=== PATIENT | male | born 1960 | race Caucasian/White ===

== ENCOUNTER → 2017-04-12 | Outpatient (CLI) | payer BC ==
--- NOTE | 2017-04-12 09:49 | RADIOLOGY REPORT (SQ) ---
EXAM DESCRIPTION: CAROTID DOPPLER COMPLETED DATE/TIME: 04/12/2017 9:42 am REASON FOR STUDY: DIZZINESS AND GIDDINESS R42 DIZZINESS AND GIDDINESS COMPARISON: None. TECHNIQUE: Grayscale ultrasound, Doppler velocity and spectra, and color Doppler images acquired of the extra-cranial carotid and vertebral arteries. Images stored on PACS. LIMITATIONS: None. FINDINGS: RIGHT CAROTID CCA Velocities: Within normal limits. ICA Velocities Peak systolic 0.8 m/s. End diastolic 0.29 m/s. Proximal ICA/CCA peak systolic ratio 0.8. Mild heterogenous plaque. LEFT CAROTID CCA Velocities: Within normal limits. ICA Velocities Peak systolic 0.82 m/s. End diastolic 0.35 m/s. Proximal ICA/CCA peak systolic ratio 0.9. Mild heterogenous plaque. VERTEBRAL ARTERIES: Antegrade flow. Normal waveforms. SUBCLAVIAN ARTERIES: No finding. OTHER: No other significant finding. IMPRESSION: NO HEMODYNAMICALLY SIGNIFICANT STENOSIS. COMMENT: Quality ID #[id number]: Velocity criteria are extrapolated from the diameter data as defined by t he Society of Radiologists in Ultrasound Consensus Conference. Radiology 2003: 229; 340-346. TECHNICAL DOCUMENTATION: JOB ID: [id number] [employer]- All Rights Reserved
== END ==
LOC: SP 08:47
PROVIDERS: ATTEND Internal Medicine Geriatric Medicine
DX: R42 Dizziness and giddiness (principal)
CPT/HCPCS: 93880

== ENCOUNTER 2017-09-07 16:22 | Emergency (ER) | payer BC ==
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
[2017-09-07 18:55] LABS: ABSOLUTE BASOPHILS # (AUTO) 0.1 10^3/uL (0.0-0.2); ABSOLUTE EOSINOPHILS # (AUTO) 1.4 10^3/uL (0.0-0.6); ABSOLUTE LYMPHOCYTES (AUTO) 2.4 10^3/uL (0.5-4.7); ABSOLUTE MONOCYTES (AUTO) 0.8 10^3/uL (0.1-1.4); ABSOLUTE NEUT (AUTO) 7.1 10^3/uL (1.7-8.2); BASOPHILS % (AUTO) 1.1 % (0-2); EOSINOPHILS % (AUTO) 11.7 % (0-6); HEMATOCRIT 47.3 % (37.9-51.0); HEMOGLOBIN 16.1 g/dL (13.5-17.0); LYMPHOCYTES % (AUTO) 20.3 % (13-45); MEAN CORPUSCULAR HEMOGLOBIN 30.4 pg (27.0-33.4); MEAN CORPUSCULAR VOLUME 89 fl (80-97); MONOCYTES % (AUTO) 6.7 % (3-13); PLATELET COUNT 272 10^3/uL (150-450); RED CELL DISTRIBUTION WIDTH 14.1 % (11.5-14.0); SEGMENTED NEUTROPHILS % (AUTO) 60.2 % (42-78); TOTAL CELLS COUNTED % (AUTO) 100 %; WHITE BLOOD COUNT 11.8 10^3/uL (4.0-10.5)
--- NOTE | 2017-09-07 19:10 | RADIOLOGY REPORT (SQ) ---
EXAM DESCRIPTION: CT HEAD WITHOUT COMPLETED DATE/TIME: 09/07/2017 6:50 pm REASON FOR STUDY: dizzy COMPARISON: None. TECHNIQUE: Axial images acquired through the brain without intravenous contrast. Images reviewed wi th bone, brain and subdural windows. Images stored on PACS. All CT scanners at this facility use dose modulation, iterative reconstruction, and/or weight based d osing when appropriate to reduce radiation dose to as low as reasonably achievable (ALARA). [facility]: Dose Right [facility]: CareDose [facility]: Dose Right [facility]: Teradose 4D [facility]: [employer] RADIATION DOSE: CT Rad equipment meets quality standard of care and radiation dose reduction techniq ues were employed. CTDIvol: 64.6 mGy. DLP: 1163 mGy-cm. mGy. LIMITATIONS: None. FINDINGS: VENTRICLES: Normal size and contour. CEREBRUM: No masses. No hemorrhage. No midline shift. No evidence for acute infarction. Normal gra y/white matter differentiation. No areas of low density in the white matter. CEREBELLUM: No masses. No hemorrhage. No alteration of density. No evidence for acute infarction. EXTRAAXIAL SPACES: No fluid collections. No masses. ORBITS AND GLOBE: No intra- or extraconal masses. Normal contour of globe without masses. CALVARIUM: No fracture. PARANASAL SINUSES: Moderate sphenoid sinus mucosal thickening. SOFT TISSUES: No mass or hematoma. OTHER: No other significant finding. IMPRESSION: No acute intracranial findings.Moderate sphenoid sinus mucosal thickening. EVIDENCE OF ACUTE STROKE: NO. COMMENT: Quality ID # [id number]: Final reports with documentation of one or more dose reduction techniques (e.g., Automated exposure control, adjustment of the mA and/or kV according to patient size, use of iterative reconstruction technique) TECHNICAL DOCUMENTATION: JOB ID: [id number] [place]-72 2010 [employer]- All Rights Reserved
[2017-09-07 19:13] LABS: ALANINE AMINOTRANSFERASE 25 U/L (21-72); ALBUMIN 4.5 g/dL (3.5-5.0); ALKALINE PHOSPHATASE 51 U/L (38-126); ANION GAP 10 (5-19); ASPARTATE AMINO TRANSFERASE 15 U/L (17-59); BILIRUBIN,DIRECT 0.4 mg/dL (0.0-0.4); BILIRUBIN,TOTAL 0.6 mg/dL (0.2-1.3); BLOOD UREA NITROGEN 9 mg/dL (7-20); CALCIUM 9.9 mg/dL (8.4-10.2); CARBON DIOXIDE 27 mmol/L (22-30); CHLORIDE 103 mmol/L (98-107); GLUCOSE 101 mg/dL (75-110); POTASSIUM 4.6 mmol/L (3.6-5.0); SODIUM 139.9 mmol/L (137-145); TOTAL PROTEIN 7.4 g/dL (6.3-8.2)
--- NOTE | 2017-09-07 19:51 | ER Document Report ---
ED General - General Mode of Arrival: Ambulatory Information source: Patient TRAVEL OUTSIDE OF THE [place] IN LAST 30 DAYS: No <ZULEYKA MAZA - Last Filed: 09/07/17 22:35> <MALDONADO YUAN - Last Filed: 09/30/17 17:06> - General Chief Complaint: Dizziness Stated Complaint: DIZZINESS Time Seen by Provider: 09/07/17 18:10 Notes: Patient is a 57 year old male with a history of HTN and hypercholesterolemia presents to the emergency department complaining of dizziness onset yesterday. Patient states he was at work when he noticed he began to get dizzy. Patient states that the dizziness is exacerbated with movement but resolves when he is supine or standing still. Patient also complains of some nausea. Patient denies vomiting, diarrhea, fevers, recent illness, chest pain, shortness of breath, or blurry vision. Patient mentions that he fell and hit his head in June of 2017. (ZULEYKA MAZA) - Related Data Allergies/Adverse Reactions: No Known Allergies Allergy (Unverified 09/07/17 16:24) Past Medical History - General Information source: Patient - Social History Smoking Status: Current Every Day Smoker Cigarette use (# per day): Yes Smoking Education Provided: No Family History: Reviewed & Not Pertinent Patient has suicidal ideation: No Patient has homicidal ideation: No - Past Medical History Cardiac Medical History: Reports: Hx Hypercholesterolemia, Hx Hypertension <ZULEYKA MAZA - Last Filed: 09/07/17 22:35> Review of Systems - Review of Systems Constitutional: No symptoms reported EENT: No symptoms reported Cardiovascular: See HPI, Dizziness Respiratory: No symptoms reported Gastrointestinal: See HPI, Nausea Genitourinary: No symptoms reported Male Genitourinary: No symptoms reported Musculoskeletal: No symptoms reported Skin: No symptoms reported Hematologic/Lymphatic: No symptoms reported Neurological/Psychological: No symptoms reported -: Yes All other systems reviewed and negative <ZULEYKA MAZA - Last Filed: 09/07/17 22:35> Physical Exam <ZULEYKA MAZA - Last Filed: 09/07/17 22:35> <MALDONADO YUAN - Last Filed: 09/30/17 17:06> - Vital signs Vitals: Temp Pulse Resp BP Pulse Ox 97.5 F 58 L 16 134/85 H 98 09/07/17 16:49 02/21/18 16:49 09/07/17 16:49 09/07/17 16:49 09/07/17 16:49 - Notes Notes: GENERAL: Alert, interacts well. No acute distress. HEAD: Normocephalic, atraumatic. EYES: Pupils equal, round, and reactive to light. Extraocular movements intact. ENT: Oral mucosa dry, tongue midline. NECK: Full range of motion. Supple. Trachea midline. LUNGS: Coarse breath sounds, good air movement. No respiratory distress. HEART: Regular rate and rhythm. No murmurs, gallops, or rubs. ABDOMEN: Soft, non-tender. Non-distended. Bowel sounds present in all 4 quadrants. EXTREMITIES: Moves all 4 extremities spontaneously. NEUROLOGICAL: Alert and oriented x3. Normal speech. Cranial nerves II through XII grossly intact. Negative pronator drift, normal gait. PSYCH: Normal affect, normal mood. SKIN: Warm, dry, normal turgor. No rashes or lesions noted. (ZULEYKA MAZA) Course - Laboratory Result Diagrams: 09/07/17 18:35 09/07/17 18:35 <ZULEYKA MAZA - Last Filed: 09/07/17 22:35> - Laboratory Result Diagrams: 09/07/17 18:35 09/07/17 18:35 <MALDONADO YUAN - Last Filed: 09/30/17 17:06> - Re-evaluation Re-evalutation: 09/07/17 22:19 Patient was found to be dehydrated which was resolved with fluids. Patient was able to ambulate normally with PCT without any dizziness or symptoms. (ZULEYKA MAZA) - Vital Signs Vital signs: Temp Pulse Resp BP Pulse Ox 97.8 F 73 18 119/87 H 98 09/07/17 23:11 09/07/17 23:11 09/07/17 23:11 09/07/17 23:11 09/07/17 23:11 - Laboratory Laboratory results interpreted by nd: 09/07/17 09/07/17 18:35 18:35 WBC 11.8 H RDW 14.1 H Eosinophils % 11.7 H Absolute Eosinophils 1.4 H AST 15 L Discharge <ZULEYKA MAZA - Last Filed: 09/07/17 22:35> <MALDONADO YUAN - Last Filed: 09/30/17 17:06> - Discharge Clinical Impression: Dehydration Condition: Stable Disposition: HOME, SELF-CARE Instructions: Dehydration ([facility]) Additional Instructions: Please presents to the emergency department if you are to have any new or worsening symptoms. Forms: Return to Work Referrals: IZABELLA ZAVALA MD [Primary Care Provider] - Follow up as needed Scribe Attestation: 09/30/17 17:06 I personally performed the services described documentation, reviewed and edited the documentation which was dictated to describe my presence, and it accurately records my words and actions. (MALDONADO YUAN) Scribe Documentation - Scribe Written by Scribe:: Scottie Ortega, 09/07/2017 20:01 acting as scribe for :: Bryan <ZULEYKA MAZA - Last Filed: 09/07/17 22:35>
[2017-09-07] MEDS ORDERED: NORMAL SALINE 1000 ML 1,000 ML IV ONE ×2 (20:28)
[2017-09-07 23:13] VITALS: BP 119/87
--- NOTE | 2017-09-08 08:03 | EKG REPORT ---
SEVERITY:- BORDERLINE ECG - SINUS RHYTHM POOR R WAVE PROGRESSION ANTEROSEPTAL LEADS, CLINICAL CORRELATION NEEDED : Confirmed by: Willie Moore MD 08-Sep-2017 08:02:50
== END 2017-09-07 23:14 | disposition home or self-care (01) ==
LOC: ER 16:22
DX: E86.0 Dehydration (principal); R42 Dizziness and giddiness; I10 Essential (primary) hypertension; R11.0 Nausea; F17.210 Nicotine dependence, cigarettes, uncomplicated
CPT/HCPCS: 93005; 99284; 96360; 36415; 85025; 80053; 84484; 70450; 93010; J7030